=== PATIENT | male | born 1990 | race Caucasian/White ===

== ENCOUNTER → 2017-08-01 | Outpatient (CLI) | payer OTHER ==
[~2017-08-01] MED LIST: GADOBUTROL 7.5 ML VIAL IVP ONE; IOPAMIDOL (ISOVUE 370) 100 ML BTL IV ONE; LIDOCAINE 1% 300 MG/30 ML SDV ONE
== END ==
LOC: FIMAGING 09:21
PROVIDERS: ATTEND Orthopaedic Surgery
PROC: 3E0U3KZ Introduction of Other Diagnostic Substance into Joints, Percutaneous Approach (ICD-10-PCS; principal; 2017-08-01)
DX: S73.192A Other sprain of left hip, initial encounter (principal)
CPT/HCPCS: A9585; Q9967